=== PATIENT | male | born 1960 | race Caucasian/White ===

== ENCOUNTER 2017-10-27 11:13 | Inpatient (IN) | payer OTHER ==
[2017-10-27 12:21] LABS: ADD MAN DIFF? NO
[2017-10-27 12:23] LABS: WHITE BLOOD COUNT 8.1 10^3/ul (4.8-10.8)
[2017-10-27 12:23] LABS: BASOPHILS % 0.5 % (0.0-2.0); EOSINOPHILS # 0.2 10^3/ul (0.0-0.5); EOSINOPHILS % 2.9 % (0.0-7.0); HEMATOCRIT 37.2 % (42.0-52.0); HEMOGLOBIN 12.6 g/dl (14.0-18.0); MEAN CORPUSCULAR HEMOGLOBIN 30.2 pg (29.0-33.0); MEAN CORPUSCULAR HGB CONC 33.9 g/dl (32.0-37.0); MEAN CORPUSCULAR VOLUME 89.2 fl (82.0-101.0); MEAN PLATELET VOLUME 8.8 fl (7.4-10.4); MONOCYTE # 0.5 10^3/ul (0.3-0.9); MONOCYTES % 6.5 % (0.0-11.0); NEUTROPHIL # 6.2 10^3/ul (1.6-7.5); NEUTROPHILS % 76.7 % (39.0-77.0); PLATELET COUNT 329 10^3/UL (140-415); RED BLOOD COUNT 4.17 10^6/ul (4.70-6.10); RED CELL DISTRIBUTION WIDTH 13.2 % (11.5-14.5)
[2017-10-27] MEDS: PIPER-TAZO 3.375 GM IV (PMX) 100 ML IVPB ×2 (12:24→18:23)
[2017-10-27 12:49] LABS: LACTIC ACID 1.1 mmol/L (0.5-2.0)
[2017-10-27 12:49] LABS: ALANINE AMINOTRANSFERASE 92 IU/L (13-69); ALBUMIN 3.8 g/dl (3.3-4.9); ALBUMIN/GLOBULIN RATIO 1.08; ALKALINE PHOSPHATASE 83 IU/L (42-121); ANION GAP 13 (8-16); ASPARTATE AMINO TRANSFERASE 36 IU/L (15-46); BILIRUBIN,INDIRECT 0.3 mg/dl (0-1.1); BILIRUBIN,TOTAL 0.3 mg/dl (0.2-1.3); BLOOD UREA NITROGEN 22 mg/dl (7-20); CARBON DIOXIDE 24 mmol/L (21-31); CHLORIDE 110 mmol/L (97-110); CREATININE 1.31 mg/dl (0.61-1.24); GLUCOSE 98 mg/dl (70-220); POTASSIUM 4.4 mmol/L (3.5-5.1); SODIUM 143 mmol/L (135-144); TOTAL PROTEIN 7.3 g/dl (6.1-8.1)
[2017-10-27 12:57] LABS: INR 1.02; PARTIAL THROMBOPLASTIN TIME 38.2 Sec (25.0-35.0); PROTIME 13.5 Sec (11.9-14.9); PT RATIO 1.1
[2017-10-27] MEDS ORDERED: ONDANSETRON 4 MG INJ IV ×2 (13:30→15:00)
[2017-10-27] MEDS ORDERED: ACETAMINOPHEN 325 MG TAB PO ×2 (13:30→15:00)
[2017-10-27] MEDS: VANCOMYCIN 1 GM (PMX) 250 ML IVPB (13:58)
[2017-10-27 14:32] LABS: LACTIC ACID 0.6 mmol/L (0.5-2.0)
[2017-10-27] MEDS ORDERED: VANCOMYCIN IV PER PHARMACY XX (15:00)
[2017-10-27] MEDS ORDERED: HYDROCODONE/APAP (5/325) TAB PO (15:00)
[2017-10-27] MEDS ORDERED: DOCUSATE SODIUM 100 MG CAP PO (15:00)
[2017-10-27] MEDS ORDERED: NACL 0.9% 3 ML SYG IV (15:00)
[2017-10-27] MEDS ORDERED: hydrALAzine 20 MG INJ IV (15:00)
[2017-10-27] MEDS: SOD CHLORIDE 0.9% 1,000 ML IV (15:25)
[2017-10-27 17:56] LABS: LACTIC ACID 1.4 mmol/L (0.5-2.0)
[2017-10-27] MEDS ORDERED: PENDING SANTYL ORDER FOR WOUND CARE XX (19:00)
[2017-10-27] MEDS: VANCOMYCIN 1.25 GM in SOD CHLORIDE 0.9% 250 ML IVPB (20:27)
[2017-10-27] MEDS: FAMOTIDINE 20 MG TAB PO (20:28)
[2017-10-27] MEDS: HEPARIN 5,000 UNIT/0.5 ML VIAL SC (20:29)
[2017-10-28] MEDS: PIPER-TAZO 3.375 GM IV (PMX) 100 ML IVPB ×4 (00:11→17:44)
[2017-10-28] MEDS: SOD CHLORIDE 0.9% 1,000 ML IV ×2 (03:30→10:34)
[2017-10-28] MEDS: LEVOTHYROXINE 100 MCG TAB PO (05:37)
[2017-10-28 06:06] LABS: WHITE BLOOD COUNT 5.7 10^3/ul (4.8-10.8)
[2017-10-28 06:06] LABS: ADD MAN DIFF? NO; BASOPHILS % 0.5 % (0.0-2.0); EOSINOPHILS # 0.4 10^3/ul (0.0-0.5); EOSINOPHILS % 6.4 % (0.0-7.0); HEMATOCRIT 35.1 % (42.0-52.0); HEMOGLOBIN 11.7 g/dl (14.0-18.0); LYMPHOCYTES # 0.9 10^3/ul (0.8-2.9); LYMPHOCYTES % 15.7 % (15.0-51.0); MEAN CORPUSCULAR HEMOGLOBIN 30.4 pg (29.0-33.0); MEAN CORPUSCULAR HGB CONC 33.3 g/dl (32.0-37.0); MEAN CORPUSCULAR VOLUME 91.2 fl (82.0-101.0); MEAN PLATELET VOLUME 9.1 fl (7.4-10.4); MONOCYTE # 0.4 10^3/ul (0.3-0.9); MONOCYTES % 7.1 % (0.0-11.0); NEUTROPHILS % 69.4 % (39.0-77.0); PLATELET COUNT 240 10^3/UL (140-415); RED BLOOD COUNT 3.85 10^6/ul (4.70-6.10); RED CELL DISTRIBUTION WIDTH 13.6 % (11.5-14.5)
[2017-10-28 06:23] LABS: HEMOGLOBIN A1C 5.7 % (0-5.9)
[2017-10-28] MEDS: LEVOTHYROXINE 112 MCG TAB PO (06:41)
[2017-10-28] MEDS: LEVOTHYROXINE 25 MCG TAB PO (06:42)
[2017-10-28 07:05] LABS: ALANINE AMINOTRANSFERASE 65 IU/L (13-69); ALBUMIN 3.1 g/dl (3.3-4.9); ALBUMIN/GLOBULIN RATIO 1.03; ALKALINE PHOSPHATASE 60 IU/L (42-121); ANION GAP 9 (8-16); ASPARTATE AMINO TRANSFERASE 24 IU/L (15-46); BILIRUBIN,INDIRECT 0.3 mg/dl (0-1.1); BILIRUBIN,TOTAL 0.3 mg/dl (0.2-1.3); BLOOD UREA NITROGEN 16 mg/dl (7-20); CALCIUM 8.3 mg/dl (8.4-10.2); CARBON DIOXIDE 26 mmol/L (21-31); CHLORIDE 112 mmol/L (97-110); CHOL/HDL RATIO 9.3 RATIO; CHOLESTEROL 140 mg/dl (100-200); CREATININE 1.26 mg/dl (0.61-1.24); GLUCOSE 91 mg/dl (70-220); HDL CHOLESTEROL 15 mg/dl (28-71); LDL CHOLESTEROL,CALCULATED 91 mg/dl; MAGNESIUM 2.4 mg/dl (1.7-2.5); POTASSIUM 4.7 mmol/L (3.5-5.1); SODIUM 142 mmol/L (135-144); TOTAL PROTEIN 6.1 g/dl (6.1-8.1); TRIGLYCERIDES 172 mg/dl (0-149); URIC ACID 6.1 mg/dl (3.1-7.9)
[2017-10-28] MEDS: COLLAGENASE 5 GM (UD JAR) TOP ×2 (09:00→10:00)
[2017-10-28] MEDS: ALLOPURINOL 300 MG TAB PO (09:55)
[2017-10-28] MEDS: FAMOTIDINE 20 MG TAB PO ×2 (09:55→21:59)
[2017-10-28] MEDS: VANCOMYCIN 1.25 GM in SOD CHLORIDE 0.9% 250 ML IVPB ×2 (10:33→20:08)
[2017-10-28] MEDS: HEPARIN 5,000 UNIT/0.5 ML VIAL SC ×2 (10:51→22:02)
[2017-10-28] MEDS ORDERED: HYDROCHLOROTHIAZIDE 12.5 MG CAP PO (13:30)
[2017-10-28] MEDS: ASPIRIN 81 MG TAB PO ×3 (13:30→21:59)
[2017-10-29] MEDS: PIPER-TAZO 3.375 GM IV (PMX) 100 ML IVPB ×4 (05:51→18:13)
[2017-10-29] MEDS: SOD CHLORIDE 0.9% 1,000 ML IV ×2 (05:52→17:00)
[2017-10-29 06:00] LABS: ADD MAN DIFF? NO
[2017-10-29 06:08] LABS: WHITE BLOOD COUNT 5.8 10^3/ul (4.8-10.8)
[2017-10-29 06:08] LABS: BASOPHIL # 0.1 10^3/ul (0.0-0.1); BASOPHILS % 0.9 % (0.0-2.0); EOSINOPHILS # 0.5 10^3/ul (0.0-0.5); EOSINOPHILS % 7.8 % (0.0-7.0); HEMATOCRIT 37.7 % (42.0-52.0); HEMOGLOBIN 12.5 g/dl (14.0-18.0); LYMPHOCYTES # 1.1 10^3/ul (0.8-2.9); LYMPHOCYTES % 19.2 % (15.0-51.0); MEAN CORPUSCULAR HEMOGLOBIN 30.2 pg (29.0-33.0); MEAN CORPUSCULAR HGB CONC 33.2 g/dl (32.0-37.0); MEAN CORPUSCULAR VOLUME 91.1 fl (82.0-101.0); MEAN PLATELET VOLUME 9.1 fl (7.4-10.4); MONOCYTE # 0.4 10^3/ul (0.3-0.9); MONOCYTES % 7.5 % (0.0-11.0); NEUTROPHIL # 3.7 10^3/ul (1.6-7.5); NEUTROPHILS % 63.9 % (39.0-77.0); PLATELET COUNT 258 10^3/UL (140-415); RED BLOOD COUNT 4.14 10^6/ul (4.70-6.10); RED CELL DISTRIBUTION WIDTH 13.7 % (11.5-14.5)
[2017-10-29 06:34] LABS: ANION GAP 12 (8-16); BLOOD UREA NITROGEN 11 mg/dl (7-20); CALCIUM 8.8 mg/dl (8.4-10.2); CARBON DIOXIDE 25 mmol/L (21-31); CHLORIDE 111 mmol/L (97-110); CREATININE 1.24 mg/dl (0.61-1.24); GLUCOSE 90 mg/dl (70-220); POTASSIUM 4.8 mmol/L (3.5-5.1); SODIUM 143 mmol/L (135-144)
[2017-10-29 08:06] LABS: VANCOMYCIN,TROUGH 15.8 ug/ml (10.0-20.0)
[2017-10-29] MEDS: VANCOMYCIN 1.25 GM in SOD CHLORIDE 0.9% 250 ML IVPB (08:59)
[2017-10-29] MEDS: COLLAGENASE 5 GM (UD JAR) TOP (09:00)
[2017-10-29] MEDS ORDERED: LEVOTHYROXINE 112 MCG TAB PO (10:00)
[2017-10-29] MEDS: HEPARIN 5,000 UNIT/0.5 ML VIAL SC ×3 (10:00→22:00)
[2017-10-29] MEDS: FAMOTIDINE 20 MG TAB PO ×2 (10:32→22:16)
[2017-10-29] MEDS: LEVOTHYROXINE 137 MCG TAB PO (10:32)
[2017-10-29] MEDS: ALLOPURINOL 300 MG TAB PO (10:32)
[2017-10-29] MEDS: VANCOMYCIN 1 GM 250 ML IVPB (21:16)
[2017-10-29] MEDS: ASPIRIN 81 MG TAB PO (22:16)
[2017-10-30] MEDS: PIPER-TAZO 3.375 GM IV (PMX) 100 ML IVPB ×3 (00:01→11:35)
[2017-10-30] MEDS: SOD CHLORIDE 0.9% 1,000 ML IV (05:32)
[2017-10-30] MEDS: VANCOMYCIN 1 GM 250 ML IVPB (09:01)
[2017-10-30] MEDS: COLLAGENASE 5 GM (UD JAR) TOP (09:01)
[2017-10-30] MEDS: HEPARIN 5,000 UNIT/0.5 ML VIAL SC (10:00)
[2017-10-30] MEDS: ALLOPURINOL 300 MG TAB PO (10:06)
[2017-10-30] MEDS: FAMOTIDINE 20 MG TAB PO (10:06)
[2017-10-30] MEDS: LEVOTHYROXINE 137 MCG TAB PO (11:35)
== END 2017-10-30 15:20 | disposition home or self-care (01) | DRG 603 ==
LOC: E/R 11:13 → PP2 17:48
DX: L03.116 Cellulitis of left lower limb (principal); N17.9 Acute kidney failure, unspecified; L97.929 Non-pressure chronic ulcer of unspecified part of left lower leg with unspecified severity; I10 Essential (primary) hypertension; I89.0 Lymphedema, not elsewhere classified; M10.9 Gout, unspecified; E03.9 Hypothyroidism, unspecified; E66.9 Obesity, unspecified; Z68.37 Body mass index [BMI] 37.0-37.9, adult; I12.9 Hypertensive chronic kidney disease with stage 1 through stage 4 chronic kidney disease, or unspecified chronic kidney disease; N18.9 Chronic kidney disease, unspecified; I73.9 Peripheral vascular disease, unspecified
CPT/HCPCS: 36415; 76775; 80048; 80053; 80061; 80202; 83036; 83605; 83735; 84100; 84443; 84560; 85025; 85610; 85730; 87040; 93005; 93922; 93971; 96374; 96375; 99285-25